=== PATIENT | female | born 1995 | race American Indian/Alaskan Native ===

== ENCOUNTER 2018-01-13 06:34 | Inpatient (IN) | payer OTHER ==
--- NOTE | 2018-01-13 07:50 | History and Physical Report ---
History of Present Illness Date of examination: 01/13/18 (SROM) Chief complaint: SROM @ 0620 History of present illness: EDC Calculations by LMP: 01/24/2018 Past History : 5 Term Births: 2 Premature Births: 0 Living Children: 2 Para: 2 Mult. Births: 0 Prev : 0 Prev. attempt? 0 Aborta: 2 Elect. Ab: 2 Spont. Ab: 0 Ectopics: 0 # 1 Delivery date: 03/12/2013 Weeks Gestation: 38 labor: no Delivery type: Hours of labor: 6 Anesthesia type: none [place] [facility] Sex: Male weight: 5-6 Name: Sincere # 2 Delivery date: 09/23/2014 Weeks Gestation: 40 labor: no Delivery type: Hours of labor: 6 Anesthesia type: none [place] [facility] Sex: Male weight: 6-3 Name: Nacier # 3 Delivery date: 2014 Weeks Gestation: 6 Delivery type: EAB Comments: Medical # 4 Delivery date: 03/2016 Delivery type: EAB Comments: medical Past Medical History: Negative Past Medical History Past Surgical History: Negative Past Surgical History Family History Summary: Other family member - Has No Family History of Ovarvian Cancer - Entered On: Other family member - Has No Family History of Colon Cancer - Entered On: 2016 Other family member - Has Family History of Pancreatic Cancer - Entered On: Other family member - Has Family History of Hypertension - Entered On: 2016 Other family member - Has Family History of Coronary Heart Disease - Entered On : 06/23/2017 Other family member - Has Family History Breast Cancer - Entered On: 06/23/2017 Social History: Patient is single on-line student Risk Factors: Smoked Tobacco Use: Never smoker Drug use: yes Substance: marijuana HIV high-risk behavior: low risk Alcohol use: yes Drinks per day: social Dietary Counseling: pn yes Past Medical History 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 Past Surgical History Abnormal PAP: negative Uterine Anomaly: negative Social Hx: Patient is single on-line student Infection History Hx of STD: chlamydia HIV Risk Eval: low risk Hepatitis B Risk Eval: low risk Infection History Comments: + GC Genetic History Congenital Heart Defect: Mom: no Dad: no Nancy Disease: Mom: no Dad: no Thalassemia Mom: no Dad: no Neural Tube Defect Mom: no Dad: no Down's Syndrome Mom: no Dad: no Gordo-Sachs Mom: no Dad: no Sickle Cell Disease/Trait Mom: no Dad: no Hemophilia Mom: no Dad: no Muscular Dystrophy Mom: no Dad: no Cystic Fibrosis Mom: no Dad: no Mahesh Chorea Mom: no Dad: no Mental Retardation Mom: no Dad: no Fragile X Mom: no Dad: no Other Genetic/Chromosomal Disorder Mom: no Dad: no Child w/other defect Mom: no Dad: no Current Allergies (reviewed today): No known allergies Past History Past Medical History: other (see HPI) Past Surgical History: other (see HPI) 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 (see HPI) Family/Genetic History: other (see HPI) - Obstetrical History Expected Date of Delivery: 01/24/18 Actual Gestation: 38 Week(s) 3 Day(s) : 5 Para: 2 Hx # Term Pregnancies: 2 Number of Pregnancies: 0 Spontaneous Abortions: 0 Induced : 2 Number of Living Children: 2 Medications and Allergies Allergies Allergy/AdvReac Type Severity Reaction Status Date / Time No Known Allergies Allergy Verified 01/13/18 07:34 Home Medications Medication Instructions Recorded Confirmed Last Taken Type Vit 75/Iron/Folic/Om3 1 each PO DAILY 01/13/18 01/13/18 01/11/18 12:00 History [One A Day Dha Pack] Review of Systems All systems: negative - Vital Signs Vital signs: Vital Signs Temp Resp 97.4 F L 18 01/13/18 07:21 01/13/18 07:21 Temp Pulse Resp BP Pulse Ox 97.4 F L 80 18 109/69 98 01/13/18 07:21 01/13/18 07:49 01/13/18 07:21 01/13/18 07:39 01/13/18 07:49 - Physical Exam Breasts: Positive: normal Cardiovascular: Regular rate Lungs: Positive: Clear to auscultation, Normal air movement Abdomen: Positive: normal appearance, soft Genitourinary (Female): Positive: normal external genitalia, normal perenium Vulva: both: normal Vagina: Positive: normal moisture Uterus: Positive: normal size, normal contour Anus/Rectum: Positive: normal perianal skin Extremities: Positive: normal Deep Tendon Reflex Grade: Normal +2 - Obstetrical FHR: category 1 Uterine Contraction Monitor Mode: External Cervical Dilatation: 3.5 Cervical Effacement Percentage: 80 Uterine Contraction Pattern: Regular Uterine Tone Measurement Phase: Contraction Uterine Contraction Intensity: Mild Results Result Diagrams: 01/13/18 08:00 All other labs normal. Assessment and Plan 22 y/o @ 38+3, SROM @ 0620 with clear fluid. CTX q3-4minutes, vertex, GBS neg. Plan to admit and manage pain PRN. Admission orders in EMR. - Patient Problems (1) Active labor at term Current Visit: Yes Status: Acute (2) 38 weeks gestation of Current Visit: Yes Status: Acute (3) SROM (spontaneous rupture of membranes) Current Visit: Yes Status: Acute
[2018-01-13] MEDS ORDERED: LACTATED RINGERS 1,000 ML IV SCH (08:00)
[2018-01-13] MEDS ORDERED: PITOCin/NS 20 UNIT/1000ML DRIP 20 UNITS/1,000 ML BAG IV SCH ×2 (08:00→14:17)
[2018-01-13 08:46] LABS: Hematocrit 38.1 % (30.3-42.9); Hemoglobin 12.5 gm/dl (10.1-14.3); Mean Corpuscular HGB Conc 33 % (30-34); Mean Corpuscular Hemoglobin 31 pg (28-32); Mean Corpuscular Volume 93 fl (79-97); Platelet Count 140 K/mm3 (140-440); Red Blood Count 4.09 M/mm3 (3.65-5.03); Red Cell Distribution Width 13.4 % (13.2-15.2)
[2018-01-13] MEDS ORDERED: ZOFRAN IV PRN (09:00)
[2018-01-13] MEDS ORDERED: ePHEDrine SULFATE IV PRN (09:00)
[2018-01-13] MEDS ORDERED: XYLOCAINE 2% INFILTRATI NR (09:00)
[2018-01-13] MEDS ORDERED: MINERAL OIL PO PRN (09:00)
[2018-01-13] MEDS ORDERED: SUBLIMAZE IV PRN (09:00)
[2018-01-13] MEDS ORDERED: BRETHINE SUB-Q PRN (09:00)
[2018-01-13] MEDS ORDERED: PITOCin/NS 30 UNIT/500ML 30 UNITS/500 ML BAG IV SCH (10:00)
--- NOTE | 2018-01-13 12:29 | Progress Note ---
Assessment and Plan patient denies need for pain interventions, breathing through ctx. SVE 6/100/ 0. Plan to start pitocin augmentation. Anticpate . - Patient Problems (1) Active labor at term Current Visit: Yes Status: Acute (2) 38 weeks gestation of Current Visit: Yes Status: Acute (3) SROM (spontaneous rupture of membranes) Current Visit: Yes Status: Acute Subjective - Subjective Date of service: 01/13/18 Principal diagnosis: IUP @ 38+3, laboring, SROM clear Interval history: EDC Calculations by LMP: 01/24/2018 Past History : 5 Term Births: 2 Premature Births: 0 Living Children: 2 Para: 2 Mult. Births: 0 Prev : 0 Prev. attempt? 0 Aborta: 2 Elect. Ab: 2 Spont. Ab: 0 Ectopics: 0 # 1 Delivery date: 03/12/2013 Weeks Gestation: 38 labor: no Delivery type: Hours of labor: 6 Anesthesia type: none Delivery location: [place] Sex: Male weight: 5-6 Name: Sincere # 2 Delivery date: 09/23/2014 Weeks Gestation: 40 labor: no Delivery type: Hours of labor: 6 Anesthesia type: none [place] [facility] Sex: Male weight: 6-3 Name: Nacier # 3 Delivery date: 2014 Weeks Gestation: 6 Delivery type: EAB Comments: Medical # 4 Delivery date: 03/2016 Delivery type: EAB Comments: medical Past Medical History: Negative Past Medical History Past Surgical History: Negative Past Surgical History Family History Summary: Other family member - Has No Family History of Ovarvian Cancer - Entered On: Other family member - Has No Family History of Colon Cancer - Entered On: 2016 Other family member - Has Family History of Pancreatic Cancer - Entered On: Other family member - Has Family History of Hypertension - Entered On: 2016 Other family member - Has Family History of Coronary Heart Disease - Entered On : 06/23/2017 Other family member - Has Family History Breast Cancer - Entered On: 06/23/2017 Social History: Patient is single on-line student Risk Factors: Smoked Tobacco Use: Never smoker Drug use: yes Substance: marijuana HIV high-risk behavior: low risk Alcohol use: yes Drinks per day: social Dietary Counseling: pn yes Past Medical History 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 Past Surgical History Abnormal PAP: negative Uterine Anomaly: negative Social Hx: Patient is single on-line student Infection History Hx of STD: chlamydia HIV Risk Eval: low risk Hepatitis B Risk Eval: low risk Infection History Comments: + GC Genetic History Congenital Heart Defect: Mom: no Dad: no Nancy Disease: Mom: no Dad: no Thalassemia Mom: no Dad: no Neural Tube Defect Mom: no Dad: no Down's Syndrome Mom: no Dad: no Gordo-Sachs Mom: no Dad: no Sickle Cell Disease/Trait Mom: no Dad: no Hemophilia Mom: no Dad: no Muscular Dystrophy Mom: no Dad: no Cystic Fibrosis Mom: no Dad: no [place] Chorea Mom: no Dad: no Mental Retardation Mom: no Dad: no Fragile X Mom: no Dad: no Other Genetic/Chromosomal Disorder Mom: no Dad: no Child w/other defect Mom: no Dad: no Current Allergies (reviewed today): No known allergies Patient reports: loss of fluid, movement normal, contractions, other ( rectal pressure during ctx), no vaginal bleeding Objective - Vital Signs Vital Signs: Vital Signs - 12hr 01/13/18 01/13/18 01/13/18 07:21 07:24 07:29 Temperature 97.4 F L Pulse Rate 69 92 H Respiratory 18 Rate Blood Pressure 110/71 O2 Sat by Pulse 96 96 Oximetry 01/13/18 01/13/18 01/13/18 07:34 07:39 07:44 Temperature Pulse Rate 81 82 80 Respiratory Rate Blood Pressure 109/69 O2 Sat by Pulse 96 97 98 Oximetry 01/13/18 01/13/18 01/13/18 07:49 07:54 07:56 Temperature Pulse Rate 80 79 82 Respiratory Rate Blood Pressure 120/61 O2 Sat by Pulse 98 99 Oximetry 01/13/18 01/13/18 08:52 12:22 Temperature Pulse Rate 75 72 Respiratory Rate Blood Pressure 123/77 129/72 O2 Sat by Pulse Oximetry - Exam Breasts: normal Cardiovascular: Regular rate Lungs: Clear to auscultation, Normal air movement Abdomen: Present: normal appearance, soft Vulva: both: normal Uterus: Present: normal FHR: category 1 Uterine Contraction Monitor Mode: External Cervical Dilatation: 6 Cervical Effacement Percentage: 100 station: 0 Uterine Contraction Frequency (min): 3-6 Uterine Contraction Duration: 60-80 Uterine Contraction Pattern: Regular Uterine Tone Measurement Phase: Contraction Uterine Contraction Intensity: Moderate Extremities: normal - Labs Labs: Laboratory Results - last 24 hr 01/13/18 01/13/18 01/13/18 08:00 08:00 08:00 WBC 8.0 RBC 4.09 Hgb 12.5 Hct 38.1 MCV 93 MCH 31 MCHC 33 RDW 13.4 Plt Count 140 RPR Nonreactive Blood Type O POSITIVE Antibody Screen Negative
--- NOTE | 2018-01-13 13:29 | Procedure Note ---
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 No shoulder dystocia. Infant placed skin to skin on mother's abdomen. 3 vessel cord clamped and cut. cord blood collected. Placenta del intact and complete. no lacerations to repair. EBL 250, apgars 8/9. Mother and infant initiating - remain LDR stable. - A at 1 minute: 8 at 5 minutes: 9 Infant Gender: Male
[2018-01-13] MEDS ORDERED: DERMOPLAST TP PRN (14:17)
[2018-01-13] MEDS ORDERED: PHENERGAN PO PRN (14:17)
[2018-01-13] MEDS ORDERED: DULCOLAX PR PRN (14:17)
[2018-01-13] MEDS ORDERED: TYLENOL PO PRN (14:17)
[2018-01-13] MEDS ORDERED: MILK OF MAGNESIA PO PRN (14:17)
[2018-01-13] MEDS ORDERED: LANSINOH TP PRN (14:17)
[2018-01-13] MEDS ORDERED: BENADRYL PO PRN (14:17)
[2018-01-13] MEDS ORDERED: SODIUM CHLORIDE FLUSH SYRINGE 10 ML IV NR (14:17)
[2018-01-13] MEDS ORDERED: TUCKS PAD TP PRN (14:17)
[2018-01-13] MEDS ORDERED: MOTRIN PO SCH (14:17)
[2018-01-13] MEDS: MOTRIN PO SCH (23:49)
[2018-01-14 00:59] LABS: Hematocrit 32.5 % (30.3-42.9); Hemoglobin 10.7 gm/dl (10.1-14.3)
--- NOTE | 2018-01-14 06:18 | Discharge Summary ---
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 Desires d/c today if possible. VSS FF below umb Lochia small Perineum intact. H&H slight drop due to blood loss from delivery. Asymptomatic. Doing well s/p vag delivery. P: d/c today with instructions RTO 1 week circ and 4 weeks care. Condition at discharge: Good Disposition: DC-01 TO HOME OR SELFCARE - Discharge Diagnoses (1) (normal spontaneous vaginal delivery) Status: Acute Comment: RTO 4 weeks PP care Plan - Discharge Medications Prescriptions: Ibuprofen [Motrin 800 MG tab] 800 mg PO TID PRN #30 tablet PRN Reason: Pain Lidocain2.5%/Prilocai2.5% [Emla] 5 gm TP PRN #1 tube - Provider Discharge Summary Activity: routine, no sex for 6 weeks, no heavy lifting 4 weeks, no strenuous exercise Diet: routine Instructions: routine Additional instructions: [] Smoking cessation referral if applicable(refer to patient education folder for contact #) [] Refer to [facility] Booklet Call your doctor immediately for: * Fever > 100.5 * Heavy vaginal bleeding ( >1 pad per hour) * Severe persistent headache * Shortness of breath * Reddened, hot, painful area to leg or breast * Drainage or odor from incision. * Keep incision clean and dry at all times and follow doctor's instructions regarding bathing/showering - Follow up plan Follow up: ZANA STARKEY MD [Primary Care Provider] - 7 Days (Congratulations! Please call [phone] to schedule your visit in 4 weeks and your son's circumcision in one week. Bring the EMLA cream with you to his visit. Do NOT use at home. Take medication as prescribed. Call with any concerns.)
[2018-01-14] MEDS: MOTRIN PO SCH ×2 (06:27→12:06)
[2018-01-14] MEDS ORDERED: PRENATAL VITAMIN PO SCH (10:00)
[2018-01-14] MEDS ORDERED: M-M-R II VACCINE SUB-Q ONE (13:24)
[2018-01-14 18:01] VITALS: BP 112/61
== END 2018-01-14 17:25 | disposition home or self-care (01) | DRG 775 ==
LOC: TRG 06:34 → LD 07:54 → OB 15:06
PROVIDERS: ADMIT Obstetrics & Gynecology; ATTEND Obstetrics & Gynecology
PROC: 10E0XZZ Delivery of Products of Conception, External Approach (ICD-10-PCS; principal; 2018-01-13)
PROC: 3E0234Z Introduction of Serum, Toxoid and Vaccine into Muscle, Percutaneous Approach (ICD-10-PCS; 2018-01-14)
DX: O42.02 Full-term premature rupture of membranes, onset of labor within 24 hours of rupture (principal); O99.314 Alcohol use complicating childbirth; O99.324 Drug use complicating childbirth; F12.90 Cannabis use, unspecified, uncomplicated; Z3A.38 38 weeks gestation of pregnancy; Z37.0 Single live birth; Z23 Encounter for immunization; Z82.49 Family history of ischemic heart disease and other diseases of the circulatory system; Z80.3 Family history of malignant neoplasm of breast; Z72.89 Other problems related to lifestyle; Z80.0 Family history of malignant neoplasm of digestive organs
CPT/HCPCS: 36415; 85014; 85018; 85027; 86592; 86850; 86900; 86901; 90707; J2590; J7120

== ENCOUNTER 2021-06-25 10:36 | Outpatient (CLI) | payer MEDICAID ==
[2021-06-25 11:10] VITALS: BP 102/59
--- NOTE | 2021-06-25 11:54 | Ultrasound Report ---
US OB BPP wo non-stress INDICATION / CLINICAL INFORMATION: [facility]. TECHNIQUE: Transabdominal. COMPARISON: None available. FINDINGS: Biophysical Profile: breathing movements: 2 movements:2 posture and tone:2 Qualitative amniotic fluid volume: 2 heart rate 146 bpm. IMPRESSION: 1. Biophysical profile is 8 of 8. Signer Name: Lemuel Storey MD Signed: 06/25/2021 11:49 AM Workstation Name: [id number]
== END 2021-06-25 13:13 | disposition home or self-care (01) ==
LOC: TRG 10:36 → APU 10:39 → TRG 13:13
PROVIDERS: ATTEND Obstetrics & Gynecology
DX: Z34.93 Encounter for supervision of normal pregnancy, unspecified, third trimester (principal); Z3A.32 32 weeks gestation of pregnancy
CPT/HCPCS: 59025; 76819